=== PATIENT | female | born 1955 | race Caucasian/White ===

== ENCOUNTER 2023-01-02 10:25 | Emergency (ER) | payer MEDICARE, SELFPAY ==
--- NOTE | ~2023-01-02 | XR_ITS ---
EXAMINATION: XR TIBIA AND FIBULA, LEFT CLINICAL INFORMATION: Pain and bruising after fall onto the left lower extremity a few days ago. COMPARISON: None available. TECHNIQUE: AP and lateral views of the left tibia and fibula were obtained. FINDINGS: Knee and ankle joints, tibia and fibula are intact. Calcaneal spurring. Chondroid matrix distal left tibia. XR/XR tibia fibula LT 2V IMPRESSION: No acute bony pathology.
--- NOTE | ~2023-01-02 | US_ITS ---
EXAMINATION: US VENOUS ULTRASOUND WITH DOPPLER LOWER EXTREMITY, LEFT CLINICAL INFORMATION: Left lower extremity pain and swelling COMPARISON: None available. TECHNIQUE: Ultrasound of the deep veins is performed from the hip to the calf with compression sonography and color and pulse Doppler assessment. Spectral analysis with color-flow imaging is performed. FINDINGS: There is normal venous compression and respiratory variation and augmented flow. The visualized common femoral vein, superficial femoral vein, profunda femoral vein, popliteal vein, and the trifurcation region shows no evidence of deep venous thrombosis. There is no significant popliteal fossa cyst. Trace effusion along the medial aspect of the knee. If the patient's symptoms persist, followup ultrasound in 5 days 7 days might be of value to exclude proximal propagation from a non-visualized calf vein. US/US venous duplex LE IMPRESSION: 1. No DVT demonstrated in the left lower extremity. 2. Trace effusion along the medial aspect of the knee.
--- NOTE | ~2023-01-02 | CT_ITS ---
EXAMINATION: CT HEAD WITHOUT CONTRAST CLINICAL INFORMATION: Head strike no loss of consciousness COMPARISON: CT head from 01/10/2018 TECHNIQUE: Contiguous axial imaging was performed from the skull base to vertex without intravenous administration of contrast. This CT examination was performed using dose optimization techniques as appropriate, variously including the following: *Automated exposure control *Adjustment of mA and/or kV according to patient size (this includes techniques or standardized protocols for targeted exams where dose is matched to indication/reason for exam; i.e. extremities or head) *Use of iterative reconstruction technique DLP: 664 mGy-cm FINDINGS: There is no evidence of acute intracranial hemorrhage or territorial infarction. Suggestion of encephalomalacia in the posterior medial aspect of the right occipital lobe. Chronic white matter small vessel ischemic changes. Redemonstration of calcific density along the medial aspect of the left frontal lobe measuring 6 mm. No abnormal mass effect or midline shift is seen. Cornejo to white matter differentiation is well preserved. No extra-axial fluid collections are identified. The ventricles are normal in size. There is no abnormal attenuation within the brain parenchyma. The hyperostosis frontalis. Osseous structures and soft tissues are normal. The mastoid air cells and visualized portions of the paranasal sinuses are well aerated. Vertebrobasilar atherosclerotic calcifications. CT/CT head/brain wo IV con IMPRESSION: 1. No acute intracranial pathology. 2. Suggestion of encephalomalacia in the posterior medial aspect of the right occipital lobe. 3. Chronic white matter small vessel ischemic changes. 4. Redemonstration of calcific density along the medial aspect of the left frontal lobe measuring 6 mm.
[2023-01-02 10:38] VITALS: BP 155/70; PULSE 69; RESP 18; TEMP 36.4; O2SAT 98; BMI 41.6
--- NOTE | 2023-01-02 10:43 | ECG_ITS ---
Test Reason : dizziness Blood Pressure : / mmHG Vent. Rate : 063 BPM Atrial Rate : 063 BPM P-R Int : 160 ms QRS Dur : 100 ms QT Int : 434 ms P-R-T Axes : 035 000 063 degrees QTc Int : 444 ms Normal sinus rhythm Low voltage QRS Nonspecific ST abnormality Abnormal ECG When compared with ECG of 04-MAY-2010 13:20, No significant changes seen Referred By: Generic ED Physician Electronically Signed By:ELISABETH RONDON MD
[2023-01-02 10:57] LABS: MANUAL DIFF FLAG NO
[2023-01-02 10:59] LABS: Basophils Percent Auto 0.4 % (0-2); Eosinophils Absolute Auto 0.1 X10*3/uL (0.0-0.4); Eosinophils Percent Auto 2.1 % (0-4); Hematocrit 35.2 % (37.0-47.0); Hemoglobin 11.7 g/dl (12.0-16.0); Imm Gran Abs Auto 0.02 X10*3/uL (0.00-0.03); Imm Gran Pct Auto 0.4 % (0.0-0.4); Lymphocytes Absolute Auto 1.5 X10*3/uL (1.2-4.9); Lymphocytes Percent Auto 30.2 % (20-40); Mean Corpuscular HGB Conc 33.2 g/dl (31.0-35.0); Mean Corpuscular Hemoglobin 29.5 pg (27.0-33.0); Mean Corpuscular Volume 88.9 fL (80.0-98.0); Mean Platelet Volume 9.7 fL (9.4-12.3); Monocytes Absolute Auto 0.4 X10*3/uL (0.1-1.2); Monocytes Percent Auto 8.1 % (2-11); Neutrophils Absolute Auto 2.8 x10*3/uL (2.0-8.3); Neutrophils Percent Auto 58.8 % (45-73); Platelet Count 272 X10*3/uL (160-400); Red Blood Count 3.96 X10*6/uL (4.20-5.50); Red Cell Distribution Width 12.8 % (11.0-16.0); White Blood Count 4.8 X10*3/uL (4.8-10.8)
[2023-01-02 11:16] LABS: Anion Gap 13 (12-20); Blood Urea Nitrogen 17 mg/dL (9-16); Carbon Dioxide 27 mmol/L (22-29); Chloride 105 mmol/L (96-108); Creatinine Clr Calc Pharmacy 34.7; Estimated Glomerular Filt Rate 32; Glucose Random 200 mg/dL (60-115); Potassium 3.9 mmol/L (3.3-5.1); Sodium 141 mmol/L (135-145)
[2023-01-02 11:25] LABS: Troponin-I High Sensitivity < 2.7 ng/L (<3.5-17.0)
[2023-01-02 12:22] VITALS: BP 147/70; PULSE 67; RESP 16; TEMP 36.9; O2SAT 96
--- NOTE | 2023-01-02 12:27 | PC.NURSE ---
a&ox3, vss and up to ate, nsr on the millwright apprentice. pt comes in today d/t fall that occurred last week while she was in [place]. pt states she was not seen while on vacation and wanted to wait until she came home. pt was brushing her teeth at when she became dizzy/lightheaded. pt grabbed onto sink and fell backwards and hit her head posteriorly. -loc, -thinners. no trauma noted to head at this time. per pt's daughter, pt had two bumps on head which since then has resolved. pt c/o being dizzy/lightheaded while ambulating. pt resting comfortably in bed in no apparent distress at this time. respirations even and unlabored. call yanez placed within reach.
--- NOTE | 2023-01-02 12:54 | ED_ITS ---
HPI - Fall General Chief Complaint: Fall Stated Complaint: fall a week ago/ L leg injury Time Seen by Provider: 01/02/23 12:34 Source: patient, family (daughter) and RN notes reviewed Mode of arrival: ambulatory Limitations: no limitations History of Present Illness HPI Narrative: 67 year old female with past medical history significant for HDL, DM presents to the ED today with left lower leg pain s/p fall 1 week ago. Patient states that she was in [place] 1 week ago when she suddenly became dizzy while in the bathroom causing her to lose her balance and fall backwards, landing on her left leg. She reports head strike on the shower wall however no LOC. Not on AC. States she was on the ground for approximately 20 minutes due to pain in her left lower leg. Was able to stand up and has been ambulating with some discomfort. Not using assistive devices. States she did not seek medical attention while in [place] as she did not have insurance over there. Denies headache, dizziness, vision changes, neck pain, back pain, chest pain, shortness of breath, dyspnea, lower extremity tingling/numbness/weakness. Related Data Allergies Allergy/AdvReac Type Severity Reaction Status Date / Time No Known Allergies Allergy Verified 01/02/23 10:36 Review of Systems 2 Review of Systems: Constitutional: No fever, chills, fatigue, night sweats, weight changes ENT/Mouth: No ear pain, hearing loss, nasal congestion, sinus pain, rhinorrhea, sore throat Eyes: No eye pain, swelling, redness, vision changes, discharge Cardio: No chest pain, palpitations, RICE, orthopnea, peripheral edema Pulm: No SOB, cough, sputum, wheezing, dyspnea, hemoptysis GI: No nausea, vomiting, hematemesis, abdominal pain, diarrhea : No irregular bleeding, dysuria, frequency, urgency, hesitancy, hematuria, flank pain, urinary flow changes, urinary incontinence or retention MSK: No back pain, neck pain, joint pain, myalgias Skin: No lesions, rashes Neuro: No weakness, numbness, paresthesias, LOC, dizziness, headache All other systems reviewed and are negative. [facility] Past Medical History Attestation statement: The following information was validated with the patient. Source: old records reviewed and nursing notes reviewed Social History Social History Smoked in Last 30 Days: No Use of substances other than those prescribed or required for medical reasons: No Advance Directives: No Physical Exam 2 Vital Signs: Vital Signs: Last Vital Signs Temp 98.4 F 01/02/23 12:22 Pulse 61 01/02/23 14:00 Resp 16 01/02/23 14:00 BP 142/74 H 01/02/23 14:00 Pulse Ox 96 01/02/23 14:00 O2 Del Method Room Air 01/02/23 14:00 BMI result Body Mass Index 41.6 Vital signs stable Const: General: cooperative, no acute distress, alert and awake Nutritional Appearance: obese Orientation/consciousness: patient oriented x3 L imitations: no limitations HEENT: Head: Yes normal to inspection, Yes normocephalic, Yes atraumatic, No Martinez's sign, No raccoon eyes and No periorbital ecchymosis Ears: hearing grossly normal bilaterally General nose exam: Normal external nose present and Normal septum present Eyes: General: appearance normal, both eyes and all related structures C onjunctivae: conjunctivae normal Sclerae: sclerae normal Pupils: Equal, round and reactive pupils present EOM: EOMs intact bilaterally Neck: Neck: Yes normal visual inspection and Yes full ROM Chest: Chest palpation & inspection: normal inspection of the chest, normal palpation of entire chest wall, no crepitus and no tenderness Resp: Effort & Inspection: normal respiratory effort, able to speak in complete sentences and symmetric chest movement Auscultation: clear to auscultation bilaterally Cardio: Rate: regular rate Rhythm: regular rhythm Peripheral pulses: p osterior tibial pulses present and dorsalis pedis present GI: Inspection: Yes normal to inspection Palpation (GI): Soft to palpation and nontender Back/Spine/Pelvis: Other: + No midline spinous tenderness. No para spinal muscle tenderness to palpation. No step off deformity. Back: No Cornejo-Peters sign present Pelvis: no pain with anterior- posterior compression Skin: General skin exam: no rashes or lesions noted Neuro: Other: Strength 5/5 intact throughout.? No saddle anesthesia.? Sensation intact to light touch.? Neurovascular intact distally.? General: patient oriented x3, gait normal and moves all extremities C ranial nerves: Yes CN's II-XII intact bilaterally and Yes Equal, round and reactive pupils present Extrem: Other: + healing ecchymosis and edema overlying the lateral lower left leg, tender to palpation without palpable warmth, deformity or fluctuance. No active bleeding or open wound. Full ROM of LLE. Negative jaylen's sign b/l. General: Yes normal to inspection and Yes full ROM Course Course Course Narrative: 1521-- CBC without leukocytosis. Mildly anemic when compared to priors. Does not complain of blood in stool, TRISTAN and occult stool not warranted at this time. BUN and creatinine mildly elevated > IV fluids running. Random glucose noted to be 200 secondary to patient's diabetes. Troponin undetectable. Patient receiving morphine for 12/11 pain. 1528-- physician observation initiated pending imaging results. 1600-- Patient signed out to my colleague Eber MCCARTHY at end of shift. Reevaluation(s) Reevaluation #1: Patient received in sign-out at change of shift pending x-ray of the left tibia fibula, ultrasound upper extremity and head CT. All of these results without any acute findings. Discussed all findings with the patient and her daughter was bedside. Patient is comfortable with discharge at this time Time: 17:24 Medications Administered Discontinued Medications Generic Name Dose Route Start Last Admin Trade Name Freq PRN Reason Stop Dose Admin Sodium Chloride 1,000 mls @ 999 mls/hr 01/02/23 13:15 01/02/23 14:20 Ns IV 01/02/23 14:15 Infused .Q1H1M NATHALY Infusion Morphine Sulfate 4 mg 01/02/23 13:07 01/02/23 13:20 Morphine Sulfate 4 Mg/Ml Cartridge IVPUSH 01/02/23 13:08 4 mg ONCE ONE Administration Protocol Medical Decision Making Medical Decision Making [facility] Narrative: 67 year old female with past medical history significant for HDL, DM presents to the ED today with left lower leg pain s/p fall 1 week ago. VSS. Patient is nontoxic appearing, in NAD. Head is normocephalic, atraumatic. Exam is nondocal. Chest non tender to palpation, no crepitus. No midline spinous or paraspinal tenderness, no step off deformity. There is healing ecchymosis and edema overlying the lateral lower left leg, tender to palpation without palpable warmth, deformity or fluctuance. No active bleeding or open wound. Full ROM of LLE. Negative jaylen's sign b/l. NV intact distally. Clinical concern for hematoma, msk sprain/ strain, fracture, dislocation, DVT. Unlikely flail chest, pneumothorax, open fracture, septic joint, cellulitis, compartment syndrome, NV compromise, or threat to limb. Labs and trop ordered in triage. Plan for pain control, imaging, and re-evaluation. Differential Diagnosis Differential Diagnoses: The differential diagnosis associated with the presentation includes As above. Admission/Observation Not indicated. Lab Data MDM Lab Attestation statement: I reviewed the patient's lab results. As above. 01/02/23 10:53 01/02/23 10:53 Labs: Lab Results 01/02/23 Range/Units 10:53 WBC 4.8 (4.8-10.8) X10*3/uL RBC 3.96 L (4.20-5.50) X10*6/uL Hgb 11.7 L (12.0-16.0) g/dl Hct 35.2 L (37.0-47.0) % MCV 88.9 (80.0-98.0) fL MCH 29.5 (27.0-33.0) pg MCHC 33.2 (31.0-35.0) g/dl RDW 12.8 (11.0-16.0) % Plt Count 272 (160-400) X10*3/uL MPV 9.7 (9.4-12.3) fL Immature Gran % (Auto) 0.4 (0.0-0.4) % Neut % (Auto) 58.8 (45-73) % Lymph % (Auto) 30.2 (20-40) % [place] % (Auto) 8.1 (2-11) % Eos % (Auto) 2.1 (0-4) % Baso % (Auto) 0.4 (0-2) % Lymph # (Auto) 1.5 (1.2-4.9) X10*3/uL [place] # (Auto) 0.4 (0.1-1.2) X10*3/uL Eos # (Auto) 0.1 (0.0-0.4) X10*3/uL Baso # (Auto) 0.0 (0.0-0.2) X10*3/uL Abs Immat Gran (auto) 0.02 (0.00-0.03) X10*3/uL Absolute Neuts (auto) 2.8 (2.0-8.3) x10*3/uL Absolute Nucleated RBC 0.000 (0.0-0.012) X10*3/uL Nucleated RBC % (auto) 0.0 (0.0-0.2) /100WBC Sodium 141 (135-145) mmol/L Potassium 3.9 (3.3-5.1) mmol/L Chloride 105 (96-108) mmol/L Carbon Dioxide 27 (22-29) mmol/L Anion Gap 13 (12-20) BUN 17 H (9-16) mg/dL Creatinine 1.59 H (0.5-1.4) mg/dL Estim Creat Clear Calc 34.7 Estimated GFR 32 Random Glucose 200 H (60-115) mg/dL Calcium 10.0 (8.4-10.2) mg/dL Troponin I High Sens < 2.7 (<3.5-17.0) ng/L Independent Interpretation I performed an independent interpretation of an: EKG, Plain X-Ray and CT Scan Interpretation: EKG showing normal sinus rhythm with a rate of 63 beats per minute, AZ 160, QTC 434, no ST segment elevations, no STEMI. X-ray left tibia/fibula without acute fracture, agree with radiologist's interpretation. CTA head/brain without acute bleed, agree with radiologist's interpretation. Ultrasound left lower extremity without clot, agree with radiologist's interpretation. Radiology Impression Discussion of test interpretation with radiology: I have reviewed the radiologist's reading. Radiologist Impression: US venous duplex LE LT IMPRESSION:? 1.? No DVT demonstrated in the left lower extremity. 2.? Trace effusion along the medial aspect of the knee. CT head/brain wo IV con IMPRESSION: 1.? No acute intracranial pathology. 2.? Suggestion of encephalomalacia in the posterior medial aspect of the right occipital lobe. 3.? Chronic white matter small vessel ischemic changes. 4.? Redemonstration of calcific density along the medial aspect of the left frontal lobe measuring 6 mm. XR tibia fibula LT 2V IMPRESSION: No acute bony pathology. Independent Historian Clinical information obtained from an independent historian. History obtained from or confirmed by: Other (Daughter) External Record Review External record reviewed: Inpatient record Prescription Management I considered prescription management with: Pain Medication Chronic Conditions Patient?s care impacted by: Diabetes Critical Care Time Critical Care Time Critical Care Time: No Discharge Plan Discharge Clinical Impression: Left leg pain Patient Disposition: Home, Self-Care Instructions: Leg Pain (ED) Additional Instructions: Your x-ray shows no fractures of her left leg. You do have some fluid around your left knee. The ultrasound shows no evidence of blood clots in your left leg. Your CT scan did not show any evidence of traumatic injuries Follow-up with your primary doctor You may elevate the leg above her heart and ice area to help with the swelling of your knee Interventions: ED Discharge Assessment Last Done: 01/02/23 17:44 Discharge Date/Time: 01/02/23 17:44
[2023-01-02] MEDS: 0.9 % Sodium Chloride 1,000 ML 999 ML IV (13:17)
[2023-01-02] MEDS: Morphine Sulfate 4 MG/ML CARTRIDGE IVPUSH (13:20)
--- NOTE | 2023-01-02 13:23 | PC.NURSE ---
20gIV placed in right Ac w/o difficulty - medications administered per provide order. will reassess pain level shortly. respirations remain even and unlabored. daughter bedside. call yanez placed within reach.
--- NOTE | 2023-01-02 13:36 | PC.NURSE ---
pt currently in CT at this time.
[2023-01-02 14:00] VITALS: BP 142/74; PULSE 61; RESP 16; O2SAT 96
--- NOTE | 2023-01-02 14:01 | PC.NURSE ---
pain level reassessed - pt verbalizing medication administration was effective. pt resting in bed w/ eyes closed/lights dimmed at this time. respirations remain even and unlabored. call placed within reach.
--- NOTE | 2023-01-02 14:57 | PC.NURSE ---
vss and up to date at this time. nsr on the air sampling and monitoring. pt resting comfortably and in no apparent distress at this time. respirations remain even and unlabored. call yanez placed within reach.
== END 2023-01-02 17:44 | disposition home or self-care (01) ==
PROVIDERS: Emergency Provider Emergency Medicine Emergency Medical Services
DX: M79.662 Pain in left lower leg (principal); E11.9 Type 2 diabetes mellitus without complications; E78.5 Hyperlipidemia, unspecified
CPT/HCPCS: 36415; 70450; 73590; 80048; 84484; 85025; 93005; 93971; 96361; 96374; 99284; 99285; J2270